=== PATIENT | female | born 1945 | race Caucasian/White ===

== ENCOUNTER 2016-07-12 22:45 | Emergency (ER) | payer BC ==
[2016-07-12] MEDS ORDERED: Meclizine TAB* 12.5 MG PO ONE (23:11)
[2016-07-12] MEDS ORDERED: NS 0.9% 1000 ML* 1,000 ML IV ONE (23:11)
[2016-07-13 00:12] LABS: Hematocrit 36 % (35-47); Mean Corpuscular HGB Conc 34 g/dl (31-36); Mean Corpuscular Hemoglobin 31 pg (27-31); Mean Corpuscular Volume 92 fL (80-97); Mean Platelet Volume 7 um3 (7.4-10.4); Red Blood Count 3.86 10^6/ul (4.0-5.4); Red Cell Distribution Width 12 % (10.5-15); White Blood Count 11.2 10^3/ul (3.5-10.8)
[2016-07-13 00:37] LABS: Albumin 4.1 g/dL (3.2-5.2); BUN/Creatinine Ratio 16.1 (8-20); C Reactive Protein 2.49 mg/L (< 5.00); Calcium 8.9 mg/dL (8.6-10.3); EGFR African American 61.9 (>60); EGFR Non-African American 48.1 (>60); Globulin 2.4 g/dL (2-4); Magnesium 2.1 mg/dL (1.9-2.7); Potassium 3.4 mmol/L (3.5-5.0); Total Bilirubin 0.2 mg/dL (0.2-1.0); Total Protein 6.5 g/dL (6.4-8.9)
[2016-07-13 00:53] LABS: TSH (Thyroid Stimulating Horm) 4.64 mcIU/mL (0.34-5.60)
[2016-07-13] MEDS ORDERED: Meclizine TAB* 12.5 MG PO ONE (01:08)
--- NOTE | 2016-07-13 01:13 | ED ---
Georgina Adair Salem, scribed for Minh Barbosa MD on 07/12/16 at 2307 . Dizziness - HPI Summary HPI Summary: Patient is a 71 y/o F presents to the ED with dizziness since 2044 tonight. She reports staggering due to dizziness, weakness of lower extremities, high BP, diaphoresis, and N/V, but denies CP, difficulty with speech, changes in vision, ear pain, or headache. However, she reports she had similar sx yesterday (1599) onset by a frontal headache. Pt has a hx of vertigo, dermatomyositis, and HTN. - History Of Current Complaint Chief Complaint: EDDizziness Stated Complaint: DIZZINESS Hx Obtained From: Patient, Family/Steak Tenderizer Machine Onset/Duration: Still Present Timing: Intermittent Episode Lasting Severity Initially: Moderate Severity Currently: Moderate Character: Dizzy Aggravating Factor(s): Other - Recumbent position. Alleviating Factor(s): Other - Position. Associated Signs And Symptoms: Positive: Nausea, Vomiting, Diaphoresis, Unsteady Gait. Negative: Slurred Speech - Allergies/Home Medications Allergies/Adverse Reactions: Allergies Allergy/AdvReac Type Severity Reaction Status Date / Time Penicillins Allergy Severe GI Upset Verified 07/12/16 22:52 Sulfa Drugs Allergy Severe GI Upset Verified 07/12/16 22:52 PMH/Surg Hx/FS Hx/Imm Hx Endocrine/Hematology History: Reports: Hx Anemia Denies: Hx Diabetes, Hx Thyroid Disease Cardiovascular History: Reports: Hx Hypertension - DIASTOLIC DYSFUNCTION, Other Cardiovascular Problems/Disorders - DYSTOLIC DYSFUNCTION Denies: Hx Pacemaker/ICD Respiratory History: Denies: Hx Asthma, Hx Chronic Obstructive Pulmonary Disease (COPD) GI History: Reports: Hx Gastroesophageal Reflux Disease Denies: Hx Ulcer Musculoskeletal History: Reports: Hx Arthritis Denies: Hx Osteoporosis Sensory History: Reports: Hx Contacts or Glasses Denies: Hx Hearing Aid Opthamlomology History: Reports: Hx Contacts or Glasses Psychiatric History: Reports: Hx Anxiety Denies: Hx Panic Disorder - Cancer History Hx Chemotherapy: No Hx Radiation Therapy: No - Surgical History Surgery Procedure, Year, and Place: FALLOPIAN TUBES REMOVED, ONE OOPHORECTOMY, GROWTH REMOVED FROM J[place]. Infectious Disease History: Denies: Hx Hepatitis, Hx Human Immunodeficiency Virus (HIV) - Family History Known Family History: Positive: Cardiac Disease - Social History Alcohol Use: Weekly Hx Substance Use: No Substance Use Type: Reports: None Hx Tobacco Use: No Smoking Status (MU): Never Smoked Tobacco Review of Systems Positive: Skin Diaphoresis Negative: Ear Ache Positive: Other - High BP. . Negative: Chest Pain Positive: Vomiting, Nausea Positive: Other - Staggering. Neurological: Other - No difficulty with speech or changes in vision. Positive: Weakness - Lower extremities. . Negative: Headache All Other Systems Reviewed And Are Negative: Yes Physical Exam Triage Information Reviewed: Yes Vital Signs On Initial Exam: Last Vital Signs 07/12/16 22:48 Temperature 97.6 F Pulse Rate 69 Respiratory 18 Rate Blood Pressure 153/68 (mmHg) O2 Sat by Pulse 99 Oximetry Vital Signs Reviewed: Yes Appearance: Positive: Well-Appearing, No Pain Distress Skin: Positive: Warm, Skin Color Reflects Adequate Perfusion, Dry Head/Face: Positive: Normal Head/Face Inspection Eyes: Positive: EOMI, JENNIFER, Other: - Nystagmus. Neck: Positive: Supple, Nontender Respiratory/Lung Sounds: Positive: Clear to Auscultation, Breath Sounds Present Cardiovascular: Positive: RRR Abdomen Description: Positive: Nontender, Soft Musculoskeletal: Positive: Normal, Strength/ROM Intact Neurological: Positive: Normal, Sensory/Motor Intact, Alert, Oriented to Person Place, Time, Other - No focal neurological deficit. Psychiatric: Positive: Affect/Mood Appropriate - Adrian Coma Scale Best Eye Response: 4 - Spontaneous Best Motor Response: 6 - Obeys Commands Best Verbal Response: 5 - Oriented Glascow Coma Scale Comments: Diagnostics - Vital Signs Vital Signs Temp Pulse Resp BP Pulse Ox 07/13/16 00:00 67 15 98 07/12/16 23:11 67 17 97 07/12/16 23:10 158/84 07/12/16 22:48 97.6 F 69 18 153/68 99 - Laboratory Lab Results: Lab Results 07/12/16 07/12/16 07/12/16 Range/Units 23:57 23:57 23:57 WBC 11.2 H (3.5-10.8) 10^3/ul RBC 3.86 L (4.0-5.4) 10^6/ul Hgb 12.0 (12.0-16.0) g/dl Hct 36 (35-47) % MCV 92 (80-97) fL MCH 31 (27-31) pg MCHC 34 (31-36) g/dl RDW 12 (10.5-15) % Plt Count 242 (150-450) 10^3/ul MPV 7 L (7.4-10.4) um3 Neut % (Auto) 80.8 (38-83) % Lymph % (Auto) 11.2 L (25-47) % Holmes % (Auto) 7.0 (1-9) % Eos % (Auto) 0.7 (0-6) % Baso % (Auto) 0.3 (0-2) % Absolute Neuts (auto) 9.0 H (1.5-7.7) 10^3/ul Absolute Lymphs (auto) 1.3 (1.0-4.8) 10^3/ul Absolute Monos (auto) 0.8 (0-0.8) 10^3/ul Absolute Eos (auto) 0.1 (0-0.6) 10^3/ul Absolute Basos (auto) 0 (0-0.2) 10^3/ul Absolute Nucleated RBC 0 10^3/ul Nucleated RBC % 0 INR (Anticoag Therapy) 0.86 L (0.89-1.11) APTT 27.9 (26.0-36.3) seconds Sodium 132 L (133-145) mmol/L Potassium 3.4 L (3.5-5.0) mmol/L Chloride 100 L (101-111) mmol/L Carbon Dioxide 24 (22-32) mmol/L Anion Gap 8 (2-11) mmol/L BUN 18 (6-24) mg/dL Creatinine 1.12 H (0.51-0.95) mg/dL Est GFR ( Amer) 61.9 (>60) Est GFR (Non-Af Amer) 48.1 (>60) BUN/Creatinine Ratio 16.1 (8-20) Glucose 143 H (70-100) mg/dL Lactic Acid (0.5-2.0) mmol/L Calcium 8.9 (8.6-10.3) mg/dL Magnesium 2.1 (1.9-2.7) mg/dL Total Bilirubin 0.20 (0.2-1.0) mg/dL AST 17 (13-39) U/L ALT 19 (7-52) U/L Alkaline Phosphatase 40 (34-104) U/L Troponin I 0.00 (<0.04) ng/mL C-Reactive Protein 2.49 (< 5.00) mg/L Total Protein 6.5 (6.4-8.9) g/dL Albumin 4.1 (3.2-5.2) g/dL Globulin 2.4 (2-4) g/dL Albumin/Globulin Ratio 1.7 (1-3) Lipase 44 (11.0-82.0) U/L TSH 4.64 (0.34-5.60) mcIU/mL 07/12/16 Range/Units 23:57 WBC (3.5-10.8) 10^3/ul RBC (4.0-5.4) 10^6/ul Hgb (12.0-16.0) g/dl Hct (35-47) % MCV (80-97) fL MCH (27-31) pg MCHC (31-36) g/dl RDW (10.5-15) % Plt Count (150-450) 10^3/ul MPV (7.4-10.4) um3 Neut % (Auto) (38-83) % Lymph % (Auto) (25-47) % Holmes % (Auto) (1-9) % Eos % (Auto) (0-6) % Baso % (Auto) (0-2) % Absolute Neuts (auto) (1.5-7.7) 10^3/ul Absolute Lymphs (auto) (1.0-4.8) 10^3/ul Absolute Monos (auto) (0-0.8) 10^3/ul Absolute Eos (auto) (0-0.6) 10^3/ul Absolute Basos (auto) (0-0.2) 10^3/ul Absolute Nucleated RBC 10^3/ul Nucleated RBC % INR (Anticoag Therapy) (0.89-1.11) APTT (26.0-36.3) seconds Sodium (133-145) mmol/L Potassium (3.5-5.0) mmol/L Chloride (101-111) mmol/L Carbon Dioxide (22-32) mmol/L Anion Gap (2-11) mmol/L BUN (6-24) mg/dL Creatinine (0.51-0.95) mg/dL Est GFR ( Amer) (>60) Est GFR (Non-Af Amer) (>60) BUN/Creatinine Ratio (8-20) Glucose (70-100) mg/dL Lactic Acid 2.3 H* (0.5-2.0) mmol/L Calcium (8.6-10.3) mg/dL Magnesium (1.9-2.7) mg/dL Total Bilirubin (0.2-1.0) mg/dL AST (13-39) U/L ALT (7-52) U/L Alkaline Phosphatase (34-104) U/L Troponin I (<0.04) ng/mL C-Reactive Protein (< 5.00) mg/L Total Protein (6.4-8.9) g/dL Albumin (3.2-5.2) g/dL Globulin (2-4) g/dL Albumin/Globulin Ratio (1-3) Lipase (11.0-82.0) U/L TSH (0.34-5.60) mcIU/mL Result Diagrams: 07/12/16 23:57 07/12/16 23:57 Diagnostic Studies Comment: Lactic acid: 2.3. Trop 1: 0.00 Lab Statement: Any lab studies that have been ordered have been reviewed, and results considered in the medical decision making process. - Radiology CXR Radiology Interpretation Completed By: Radiologist - IMPRESSION: see EMR pending. - CT BRAIN CT Interpretation Completed By: Radiologist - IMPRESSION: No evidence of acute pathology. - EKG 2788 EKG Interpretation: NSR @ 66bpm. [place] interval: 216. National Institutes Of Health - NIH Scale Level of Consciousness: Alert/Keenly Responsive Ask Patient the Month and His/Her Age: Both Correct Ask Pt to Open/Close Eyes and Machinist Bench/Release Non-Paretic Hand: Both Correctly Best Gaze (Only Horizontal Eye Movement): Normal Visual Field Testing: No Visual Loss Facial Paresis-Pt to Smile & Close Eyes or Grimace Symmetry: Normal/Symmetrical Motor Function - Right Arm: No Drift-Holds 10 Seconds Motor Function - Left Arm: No Drift-Holds 10 Seconds Motor Function - Right Leg: No Drift-Holds 10 Seconds Motor Function - Left Leg: No Drift-Holds 10 Seconds Limb Ataxia-Must be out of Proportion to Weakness Present: Absent Sensory (Use Pinprick to Test Arms/Legs/Trunk/Face): Normal Best Language (Describe Picture, Name Items): No Aphasia Dysarthria (Read Several Words): Normal Extinction and Inattention: No Abnormality Total Score: 0 Re-Evaluation - Re-Evaluation First Eval Re-Evaluation Time: 01:03 Comment: Informed pt of lab and imaging results. Dizzy Course/Dx - Course Course Of Treatment: NO CRITICAL CARE TIME. DIZZINESS GONE AFTER MECLIZINE PO. DISCUSSED RESULTS WITH PATIENT/FAMILY. NO NEUROLOGIC DEFICIT, NO CHEST PAIN. PATIENT FEELS COMFORTABLE WITH DISCHARGE HOME. DISCHARGE HOME STABLE. - Diagnoses Provider Diagnoses: Vertigo Discharge - Discharge Plan Condition: Stable Disposition: HOME Prescriptions: Meclizine HCl [Meclizine 25] 25 mg PO Q6HR PRN #15 tab PRN Reason: Dizziness Patient Education Materials: Vertigo (ED), Dizziness (ED) Referrals: Brittani Azevedo MD [Primary Care Provider] - Additional Instructions: FOLLOW UP WITH YOUR DOCTOR. RETURN TO THE EMERGENCY DEPARTMENT FOR ANY WORSENING OF YOUR CONDITION; WEAKNESS , NUMBNESS, DIFFICULTY WITH SPEECH OR VISION, CHEST PAIN, SHORTNESS OF BREATH, YOU FEEL ILL OR QUESTIONS OR CONCERNS. The documentation as recorded by the Georgina gutierrez Salem accurately reflects the service I personally performed and the decisions made by me, Minh Barbosa MD.
[2016-07-13 01:18] LABS: Urine Bacteria Absent (Absent); Urine Bilirubin Negative (Negative); Urine Glucose Negative (Negative); Urine Nitrite Negative (Negative)
[2016-07-13 03:30] VITALS: BP 141/81
--- NOTE | 2016-07-13 07:44 | RAD ---
HISTORY: Dizziness COMPARISONS: October 15, 2015 VIEWS: Single frontal view of the chest FINDINGS: CARDIOMEDIASTINAL SILHOUETTE: The cardiomediastinal silhouette is normal. RAE: The rae are normal. PLEURA: The costophrenic angles are sharp. No pleural abnormalities are noted. LUNG PARENCHYMA: The lungs are clear. ABDOMEN: The upper abdomen is clear. There is no subphrenic gas. BONES AND SOFT TISSUES: No bone or soft tissue abnormalities are noted. OTHER: None. IMPRESSION: NO ACTIVE CARDIOPULMONARY DISEASE.
--- NOTE | 2016-07-13 07:46 | RAD ---
HISTORY: Dizziness COMPARISONS: March 09, 2013 TECHNIQUE: Multiple contiguous axial CT scans were obtained of the head without intravenous contrast. FINDINGS: HEMORRHAGE/INFARCT: There is no hemorrhage or acute infarct. MASSES/SHIFT: There is no mass or shift. EXTRA-AXIAL SPACES: There are no extra-axial fluid collections. SULCI AND VENTRICLES: The sulci and ventricles are normal in size and position for the patient's stated age. CEREBRUM: There are no focal parenchymal abnormalities. BRAINSTEM: There are no focal parenchymal abnormalities. CEREBELLUM: There are no focal parenchymal abnormalities. VESSELS: The vessels are grossly normal. PARANASAL SINUSES: The paranasal sinuses are clear. ORBITS: The orbits are unremarkable. BONES AND SOFT TISSUE: No bone or soft tissue abnormalities are noted. OTHER: None IMPRESSION: NO ACUTE INTRACRANIAL PATHOLOGY.
== END 2016-07-13 03:30 | disposition home or self-care (01) ==
LOC: ED 22:45
DX: R42 Dizziness and giddiness (principal); R11.2 Nausea with vomiting, unspecified; R61 Generalized hyperhidrosis; R26.81 Unsteadiness on feet; I10 Essential (primary) hypertension; M19.90 Unspecified osteoarthritis, unspecified site; K21.9 Gastro-esophageal reflux disease without esophagitis; F41.9 Anxiety disorder, unspecified; Z88.0 Allergy status to penicillin; Z88.2 Allergy status to sulfonamides
CPT/HCPCS: 36415; 70450; 71010; 80053; 81003; 81015; 83605; 83690; 83735; 84443; 84484; 85025; 85610; 85730; 86140; 93005; 96360; 96361; 99284; A9270-GY

== ENCOUNTER 2019-03-04 09:09 | Emergency (ER) | payer MEDICARE, BC ==
[2019-03-04] MEDS ORDERED: Cyclobenzaprine TAB* 10 MG PO ONE (11:54)
[2019-03-04] MEDS ORDERED: HYDROcodone/ACETAMIN 5-325 MG* 1 TAB PO ONE (12:46)
[2019-03-04 13:23] LABS: ABS Eosinophils 0.1 10^3/ul (0-0.6); ABS Monocytes 0.5 10^3/ul (0-0.8); ABS Neutrophils 5.7 10^3/ul (1.5-7.7); Eosinophil % 0.9 %; Hematocrit 38 % (35-47); Lymphocyte % 24.3 %; Mean Corpuscular HGB Conc 34 g/dL (31-36); Mean Corpuscular Hemoglobin 30 pg (27-31); Mean Corpuscular Volume 88 fL (80-97); Mean Platelet Volume 6.9 fL (7.4-10.4); Nucleated Red Blood Cells % 0.1; Platelet Count 282 10^3/uL (150-450); Red Blood Count 4.31 10^6 /uL (3.70-4.87); Red Cell Distribution Width 13 % (10-15); White Blood Count 8.3 10^3/uL (3.5-10.8)
[2019-03-04 13:31] LABS: INR 1.02 (0.82-1.09)
[2019-03-04 13:39] LABS: Albumin 4.5 g/dL (3.2-5.2); Albumin/Globulin Ratio 1.7 (1-3); BUN/Creatinine Ratio 17.3 (8-20); Calcium 9.6 mg/dL (8.6-10.3); EGFR African American 83.9 (>60); EGFR Non-African American 69.3 (>60); Globulin 2.7 g/dL (2-4); Potassium 3.7 mmol/L (3.5-5.0); Total Bilirubin 0.4 mg/dL (0.2-1.0); Total Protein 7.2 g/dL (6.4-8.9)
[2019-03-04] MEDS ORDERED: Iohexol 300* (CONTRAST) 10 ML SDV IV ONE (14:05)
[2019-03-04] MEDS ORDERED: Iodixanol* (CONTRAST) 320 MG/ML 100 ML SDV IV ONE (14:50)
--- NOTE | 2019-03-04 15:12 | ED ---
Progress - Progress Note Progress Note: This patient is a patient presented to me by WES Sneed. - Results/Orders Results/Orders: An EKG at 1250 revealed NSR at 64 BPM, inverted T-wave in lead III, no STEMI. Dr. Max has reviewed and interpreted this EKG. Discharge ED - Discharge Plan Condition: Stable Disposition: HOME Prescriptions: Cyclobenzaprine TAB* [Flexeril 10 MG TAB*] 10 mg PO BID PRN #10 tab PRN Reason: Spasms Patient Education Materials: Muscle Strain (ED) Referrals: Rubens Hernandez MD [Medical Doctor] - Brittani Azevedo MD [Primary Care Provider] - Saurabh Schumacher MD [Family Provider] - Additional Instructions: If anything worsens, please follow up with Dr. Schumacher's office or call Dr. Hernandez in the next few hours/days Flexeril 5mg four times daily, although you can take up to 10mg four times daily if needed Moist heat to the area as much as possible Gentle stretches after heat is applied If you develop any differing symptoms, headache, confusion, dizziness, chest pain, etc - return to the ED - Attestation Statements Document Initiated by Scribe: Yes Documenting Scribe: Rodney Kelley Provider For Whom Scribe is Documenting (Include Credential): Myrna Max MD Scribe Attestation: IRodney, scribed for Myrna Max MD on 03/04/19 at 1554.
[2019-03-04 15:49] VITALS: BP 149/98
--- NOTE | 2019-03-05 05:44 | ED ---
Neck Pain - HPI Summary HPI Summary: This patient is a 74yo F presenting to the ED with L sided neck pain x 2 days. Pt has no chest pain, dizziness, RICCI, confusion, SOB, numbness or tingling in the bilateral upper extremities. States she was carrying heavy bags a few days ago on the L arm, which began to hurt her L side of her neck, radiating to the posterior upper back over the rhomboid area. She states last evening, rolling over in bed, she felt more pain to the area and now feels she is unable to move the neck, flex, extend or rotate. Denies any radiation of pain. Pt has a hx of dermatopolymyositis and HTN. Takes cellcept. Has not been on steroids for several years. She does state her neck pain has been worsening over the last few months. She has seen Dr. Schumacher for this. Family hx of carotid artery dissection, and states family if concerned for same d/t her high blood pressure. - History of Current Complaint Chief Complaint: EDNeckComplaint Stated Complaint: NECK PAIN PER PT Time Seen by Provider: 03/04/19 09:34 Hx Obtained From: Patient Timing: Constant Onset/Duration: Sudden Onset Severity Initially: Moderate Severity Currently: Moderate Pain Intensity: 0 Pain Scale Used: 0-10 Numeric Location: Discrete At: - left sided neck pain Character: Aching, Stiff Aggravating Factors: Nothing Alleviating Factors: Nothing Associated Signs & Symptoms: Positive: Negative. Negative: Fever, Nuchal Rigity , Weakness, Paresthesia - Risk Factors Meningitis Risk Factors: Negative - Allergies/Home Medications Allergies/Adverse Reactions: Allergies Allergy/AdvReac Type Severity Reaction Status Date / Time Penicillins Allergy GI Upset Verified 03/04/19 09:52 Sulfa (Sulfonamide Allergy GI Upset Verified 03/04/19 09:52 Antibiotics) Home Medications: Home Medications Escitalopram * [Lexapro 10 mg (NF)] 10 mg PO DAILY 03/04/19 [History Confirmed 03/04/19] Famotidine TAB* [Pepcid 20 MG TAB*] 20 mg PO BID 03/04/19 [History Confirmed ] Metoprolol Succinate XL TAB* [Toprol XL TAB*] 50 mg PO DAILY 03/04/19 [History Confirmed 03/04/19] Multivitamins/Minerals TAB* [Thera M Plus TAB*] 1 tab PO DAILY 03/04/19 [ History Confirmed 03/04/19] PMH/Surg Hx/FS Hx/Imm Hx Previously Healthy: Yes Endocrine/Hematology History: Reports: Hx Diabetes, Hx Anemia Denies: Hx Thyroid Disease Cardiovascular History: Reports: Hx Hypertension - DIASTOLIC DYSFUNCTION, Other Cardiovascular Problems/Disorders - DYSTOLIC DYSFUNCTION Denies: Hx Pacemaker/ICD Respiratory History: Denies: Hx Asthma, Hx Chronic Obstructive Pulmonary Disease (COPD) GI History: Reports: Hx Gastroesophageal Reflux Disease Denies: Hx Ulcer History: Denies: Hx Renal Disease Musculoskeletal History: Reports: Hx Arthritis Denies: Hx Osteoporosis Sensory History: Reports: Hx Contacts or Glasses, Hx Hearing Aid Opthamlomology History: Reports: Hx Contacts or Glasses Psychiatric History: Reports: Hx Anxiety Denies: Hx Panic Disorder - Cancer History Hx Chemotherapy: No Hx Radiation Therapy: No - Surgical History Surgery Procedure, Year, and Place: FALLOPIAN TUBE REMOVED & OVARY REMOVED. CHIN - REMOVED A CYST - Immunization History Date of Influenza Vaccine: 2018 Hx Pertussis Vaccination: No Immunizations Up to Date: Yes Infectious Disease History: No Infectious Disease History: Denies: Hx Hepatitis, Hx Human Immunodeficiency Virus (HIV), Traveled Outside the [place] in Last 30 Days - Family History Known Family History: Positive: None, Cardiac Disease - Social History Occupation: Unemployed Lives: With Family Alcohol Use: Rare Hx Substance Use: No Substance Use Type: Reports: None Hx Tobacco Use: No Smoking Status (MU): Never Smoked Tobacco Review of Systems Negative: Fever, Chills, Fatigue, Skin Diaphoresis Negative: Palpitations, Chest Pain Negative: Shortness Of Breath, Cough Genitourinary: Negative Positive: no symptoms reported, see HPI Positive: Arthralgia, Myalgia Skin: Negative All Other Systems Reviewed And Are Negative: Yes Physical Exam Triage Information Reviewed: Yes Vital Signs On Initial Exam: Initial Vitals Temp Pulse Resp BP Pulse Ox 97.1 F 79 16 204/151 95 03/04/19 09:11 03/04/19 09:11 03/04/19 09:11 03/04/19 09:11 03/04/19 09:11 Vital Signs Reviewed: Yes Appearance: Positive: Well-Appearing, Well-Nourished Skin: Positive: Warm, Skin Color Reflects Adequate Perfusion Head/Face: Positive: Normal Head/Face Inspection Eyes: Positive: EOMI, JENNIFER, Conjunctiva Clear Neck: Positive: Supple, Nontender, No Lymphadenopathy Respiratory/Lung Sounds: Positive: Clear to Auscultation, Breath Sounds Present Cardiovascular: Positive: RRR, Pulses are Symmetrical in both Upper and Lower Extremities Musculoskeletal: Positive: Pain @ - l neck pain Neurological: Positive: Normal, Sensory/Motor Intact Psychiatric: Positive: Normal, Affect/Mood Appropriate AVPU Assessment: Alert - Adrian Coma Scale Best Eye Response: 4 - Spontaneous Best Motor Response: 6 - Obeys Commands Best Verbal Response: 5 - Oriented Coma Scale Total: 15 Procedures - Sedation Patient Received Moderate/Deep Sedation with Procedure: No Diagnostics - Vital Signs Vital Signs Temp Pulse Resp BP Pulse Ox 03/04/19 15:49 98.2 F 69 18 149/98 96 03/04/19 15:39 18 149/98 03/04/19 15:09 70 18 173/97 95 03/04/19 15:02 10 03/04/19 14:39 77 20 166/106 96 03/04/19 14:09 77 25 169/96 96 03/04/19 14:00 69 14 96 03/04/19 13:39 71 19 194/104 96 03/04/19 13:09 73 16 207/113 95 03/04/19 13:00 68 9 97 03/04/19 12:55 189/101 03/04/19 12:43 208/114 03/04/19 12:39 196/112 03/04/19 12:36 206/108 03/04/19 12:16 195/120 03/04/19 12:09 68 189/106 96 03/04/19 12:00 68 96 03/04/19 11:39 65 168/107 93 03/04/19 11:35 67 181/105 94 03/04/19 11:00 70 95 03/04/19 10:39 65 182/104 95 03/04/19 10:09 71 171/97 96 03/04/19 10:00 70 96 03/04/19 09:47 77 182/103 96 03/04/19 09:40 75 212/121 94 03/04/19 09:39 74 96 03/04/19 09:11 97.1 F 79 16 204/151 95 - Laboratory Lab Results: Lab Results 03/04/19 03/04/19 03/04/19 Range/Units 13:16 13:16 13:16 WBC 8.3 (3.5-10.8) 10^3/uL RBC 4.31 (3.70-4.87) 10^6 /uL Hgb 13.0 (12.0-16.0) g/dL Hct 38 (35-47) % MCV 88 (80-97) fL MCH 30 (27-31) pg MCHC 34 (31-36) g/dL RDW 13 (10-15) % Plt Count 282 (150-450) 10^3/uL MPV 6.9 L (7.4-10.4) fL Neut % (Auto) 68.5 % Lymph % (Auto) 24.3 % [place] % (Auto) 5.9 % Eos % (Auto) 0.9 % Baso % (Auto) 0.4 % Absolute Neuts (auto) 5.7 (1.5-7.7) 10^3/ul Absolute Lymphs (auto) 2.0 (1.0-4.8) 10^3/ul Absolute Monos (auto) 0.5 (0-0.8) 10^3/ul Absolute Eos (auto) 0.1 (0-0.6) 10^3/ul Absolute Basos (auto) 0.0 (0-0.2) 10^3/ul Absolute Nucleated RBC 0.0 10^3/ul Nucleated RBC % 0.1 INR (Anticoag Therapy) 1.02 (0.82-1.09) Sodium 133 L (135-145) mmol/L Potassium 3.7 (3.5-5.0) mmol/L Chloride 99 L (101-111) mmol/L Carbon Dioxide 24 (22-32) mmol/L Anion Gap 10 (2-11) mmol/L BUN 14 (6-24) mg/dL Creatinine 0.81 (0.51-0.95) mg/dL Est GFR ( Amer) 83.9 (>60) Est GFR (Non-Af Amer) 69.3 (>60) BUN/Creatinine Ratio 17.3 (8-20) Glucose 104 H (70-100) mg/dL Calcium 9.6 (8.6-10.3) mg/dL Total Bilirubin 0.40 (0.2-1.0) mg/dL AST 19 (13-39) U/L ALT 27 (7-52) U/L Alkaline Phosphatase 54 (34-104) U/L Troponin I 0.00 (<0.03) ng/mL Total Protein 7.2 (6.4-8.9) g/dL Albumin 4.5 (3.2-5.2) g/dL Globulin 2.7 (2-4) g/dL Albumin/Globulin Ratio 1.7 (1-3) Result Diagrams: 03/04/19 13:16 03/04/19 13:16 Lab Statement: Any lab studies that have been ordered have been reviewed, and results considered in the medical decision making process. Neck Course/Dx - Course Course Of Treatment: Pt is evaluated for L sided neck pain. History of dermatopolymyositis and states she tends to have bilateral neck pain. This pain worse to the L side and unable to move her neck at this time. BP elevated on arrival. Pt denies any other symptoms. Pt has pain directly to the sternocleidomastoid and upper posterior neck. Carotids without bruits. Pt able to move about the shoulder, however endorses pain with extension. Not taking any additional medication at home. Discussed with Dr. Hernandez recommending a baseline neck xray and muscle relaxers. IMPRESSION: MODERATE TO SEVERE DEGENERATIVE DISC DISEASE. Pt continues to have high BP. Most likely related to patients obvious anxiety and pain. However, d/t elevated BP 210/108 , discussed case with Dr. Max who recommends CTA. Labs obtained and are WNL , including trop. Ekg shows no acute findings. CTA: MPRESSION: 1. ATHEROMATOUS DISEASE 2. NO INTERNAL CAROTID ARTERY STENOSIS BY NASCET CRITERIA. 3. NO ANEURYSM, VASCULAR MALFORMATION, OCCLUSION, OR STENOSIS OF THE VISUALIZED INTRACRANIAL CIRCULATION. Pt was given soft collar, encouarged moist heat to the area. Pt will follow up with Dr. Schumacher on Monday. Flexeril prescribed. - Diagnoses Differential Dx/HQI/PQRI: Positive: Arthritis, Dystonia, Sprain, Strain, Other - stiffness Provider Diagnoses: Neck pain Discharge ED - Sign-Out/Discharge Documenting (check all that apply): Patient Departure - Discharge Plan Condition: Stable Disposition: HOME Prescriptions: Cyclobenzaprine TAB* [Flexeril 10 MG TAB*] 10 mg PO BID PRN #10 tab PRN Reason: Spasms Patient Education Materials: Muscle Strain (ED) Referrals: Rubens Hernandez MD [Medical Doctor] - Brittani Azevedo MD [Primary Care Provider] - Saurabh Schumacher MD [Family Provider] - Additional Instructions: If anything worsens, please follow up with Dr. Schumacher's office or call Dr. Hernandez in the next few hours/days Flexeril 5mg four times daily, although you can take up to 10mg four times daily if needed Moist heat to the area as much as possible Gentle stretches after heat is applied If you develop any differing symptoms, headache, confusion, dizziness, chest pain, etc - return to the ED - Billing Disposition and Condition Condition: STABLE Disposition: Home
== END 2019-03-04 15:49 | disposition home or self-care (01) ==
LOC: ED 09:09
DX: M50.323 Other cervical disc degeneration at C6-C7 level (principal); E11.9 Type 2 diabetes mellitus without complications; I65.21 Occlusion and stenosis of right carotid artery; I10 Essential (primary) hypertension; Z88.0 Allergy status to penicillin; Z88.2 Allergy status to sulfonamides
CPT/HCPCS: 36415; 70496; 70498; 72050; 80053; 84484; 85025; 85610; 93005; 99283; A9270-GY; Q9967